=== PATIENT | female | born 1945 | race Caucasian/White ===

== ENCOUNTER 2017-03-20 19:37 | Inpatient (IN) | payer MEDICARE, BC ==
[~2017-03-20] VITALS: Ht 152.4 cm; Wt 77.1 kg
[~2017-03-20 19:37] MED LIST: ACETYL L-CARNITINE PO; ALEVE 220MG220 MG PO; ALLEGRA ALLERG180 MG PO; ASPIRIN E.C. 8181 MG PO; CALCIUM 500500 M1 PO; CALCIUM 600600 MG PO; CETIRIZINE; COZAAR; COZAAR 25MG25 MG/TAB PO; ESCITALOPRAM; ETODOLAC300 MG PO; FISH OIL500 MG PO; GLUCOSAMINE S1000 MG PO; HCTZ; INHALER; LEXAPRO 10MG10 MG PO; MAGNESIUM250 M1 PO; MSM1000 MG PO; NATURE'S BLE1000 MCG PO; NEXIUM 40MG40 MG PO; NEXIUM PO; NORVASC 5MG5 MG/TAB PO; OSTEO-BI-FLEX 21 TAB PO; PERCOCET 325 MG1 TA2 PO; PHENERGAN 25 TA25 MG PO; PRAVACHOL20 MG PO; PROAIR; SUPER B COMPLEX PO; UNICOMPLEX1 CAP PO; VICODIN 5/5001 UDTAB PO; VITAMIN B-1000 MCG/T; VITAMIN D 1001000 IU PO; [UNRECOGNIZED DRUG - OTHER]; [UNRECOGNIZED DRUG - REMARK] PO
[2017-03-20] MEDS ORDERED: COZAAR 25MG25 MG/TAB PO (20:41)
[2017-03-20 20:44] LABS: HEMATOCRIT 35.4 % (37.0-47.0); MEAN CELL VOLUME 94 fl (80.0-100.0); MEAN CORPUSCULAR HEMOGLOBIN 32 pg (27.0-31.0); MEAN CORPUSCULAR HGB CONC 34 g/dl (33.0-37.0); MEAN PLATELET VOLUME 9.9 fl (7.4-10.4); PLATELET COUNT 378 K/mm3 (130-400); RED BLOOD COUNT 3.78 M/mm3 (4.10-5.30); REDCELL DISTRIBUTION WIDTH-CV 13.9 % (11.5-14.5); WHITE BLOOD COUNT 15.3 K/mm3 (4.8-10.8)
[2017-03-20 20:46] LABS: PH 7 (5-8); SQUAMOUS EPITHELIAL 0-2 /hpf; URINE APPEARANCE Clear; URINE BACTERIA None Seen /hpf; URINE BILIRUBIN Negative (NEGATIVE); URINE BLOOD Negative (NEGATIVE); URINE COLOR Yellow; URINE GLUCOSE Negative (NEGATIVE); URINE KETONE Negative (NEGATIVE); URINE RBC 0-2 /hpf; URINE UROBILINOGEN Negative (NEGATIVE)
[2017-03-20 20:52] LABS: ADJUSTED CALCIUM 9.1 mg/dL (8.4-10.2); ALANINE AMINOTRANSFERASE 50 U/L (9-52); ALBUMIN 3.5 gm/dL (3.5-5.0); ALKALINE PHOSPHATASE 99 U/L (50-136); ANION GAP 11 mmol/L (7-16); BILIRUBIN,TOTAL 0.7 mg/dL (0.0-1.0); BLOOD UREA NITROGEN 9 mg/dL (7-17); CALCIUM 8.7 mg/dL (8.4-10.2); CARBON DIOXIDE 24 mmol/L (22-30); CHLORIDE 96 mmol/L (98-107); CREATINE KINASE 32 U/L (30-135); CREATININE, serum 0.57 mg/dL (0.52-1.25); GLUCOSE 137 mg/dL (74-106); POTASSIUM 4.4 mmol/L (3.4-5.0); SODIUM 131 mmol/L (137-145); TOTAL PROTEIN 6.9 gm/dL (6.4-8.2)
[2017-03-20 21:01] LABS: B-TYPE NATRIURETIC PEPTIDE 1290 pg/mL (0-125)
[2017-03-20 21:08] LABS: TROPONIN-I < 0.012 ng/mL (0.000-0.034)
[2017-03-20] MEDS ORDERED: BIOTIN10000 MC1 PO (21:09)
[2017-03-20 21:38] LABS: C-REACTIVE PROTEIN 35.6 mg/dL (0.0-0.9)
[2017-03-20 23:41] VITALS: BP 110/61; PULSE 86; TEMP 98.4
[2017-03-21 04:02] VITALS: BP 112/45; PULSE 94; TEMP 98.8
[2017-03-21 07:44] VITALS: BP 130/56; PULSE 103; TEMP 98.3
[2017-03-21 12:10] VITALS: BP 125/50; PULSE 96; TEMP 102.8
[2017-03-21 12:47] LABS: INFLUENZA B NEGATIVE
[2017-03-21 16:00] VITALS: BP 131/58; PULSE 100; TEMP 97.8
[2017-03-21 19:29] VITALS: BP 133/53; PULSE 92; TEMP 98.5
[2017-03-21 22:54] VITALS: BP 143/62; PULSE 82; TEMP 97.4
[2017-03-22 02:49] VITALS: BP 144/76; PULSE 70; TEMP 98.4
[2017-03-22 07:04] LABS: MEAN CELL VOLUME 94 fl (80.0-100.0); MEAN CORPUSCULAR HGB CONC 34 g/dl (33.0-37.0); MEAN PLATELET VOLUME 9.4 fl (7.4-10.4); PLATELET COUNT 433 K/mm3 (130-400); RED BLOOD COUNT 3.42 M/mm3 (4.10-5.30); REDCELL DISTRIBUTION WIDTH-CV 14.5 % (11.5-14.5)
[2017-03-22 07:07] LABS: HEMATOCRIT 32.2 % (37.0-47.0); HEMOGLOBIN 10.8 g/dl (12.5-16.0); MEAN CORPUSCULAR HEMOGLOBIN 32 pg (27.0-31.0)
[2017-03-22 07:08] LABS: ADD PATHOLOGY DIFF REVIEW NO
[2017-03-22 07:43] LABS: CALCIUM 8.8 mg/dL (8.4-10.2); CREATININE, serum 0.52 mg/dL (0.52-1.25); POTASSIUM 4.7 mmol/L (3.4-5.0)
[2017-03-22 08:30] VITALS: BP 135/52; PULSE 99; TEMP 97.1
[2017-03-22 08:47] LABS: BAND 30 % (0-10); MYELOCYTE 1 % (0-0); NEUTROPHILS 51 % (42.0-75.2); TOTAL CELLS COUNTED 100
[2017-03-22 08:48] LABS: PLATELET ESTIMATE INCREASED (NORMAL)
[2017-03-22 11:26] VITALS: BP 124/61; PULSE 79; TEMP 97.5
[2017-03-22 16:16] LABS: ARTERIAL BLD GAS O2 SATURATION 90.7 % (92-100); ARTERIAL BLD GAS TCO2 CT 25.9; ARTERIAL BLOOD GAS BASE EXCESS -0.1 (-2-2); ARTERIAL BLOOD GAS HCO3 24.6 meq/L (22-26); OXYHEMOGLOBIN 90.1 %
[2017-03-22 16:17] LABS: ATS? YES
[2017-03-22 16:27] VITALS: BP 140/55; PULSE 91; TEMP 97.9
[2017-03-22 20:49] VITALS: BP 128/52; PULSE 88; TEMP 98.6
[2017-03-22 23:34] VITALS: BP 143/67; PULSE 83; TEMP 98.1
[2017-03-23 03:09] VITALS: BP 137/68; PULSE 90; TEMP 98.4
[2017-03-23 07:09] LABS: MEAN CELL VOLUME 94 fl (80.0-100.0); MEAN CORPUSCULAR HGB CONC 33 g/dl (33.0-37.0); MEAN PLATELET VOLUME 9.4 fl (7.4-10.4); PLATELET COUNT 491 K/mm3 (130-400); RED BLOOD COUNT 3.43 M/mm3 (4.10-5.30); REDCELL DISTRIBUTION WIDTH-CV 14.5 % (11.5-14.5)
[2017-03-23 07:15] LABS: HEMATOCRIT 32.1 % (37.0-47.0); HEMOGLOBIN 10.7 g/dl (12.5-16.0); MEAN CORPUSCULAR HEMOGLOBIN 31 pg (27.0-31.0); WHITE BLOOD COUNT 24.5 K/mm3 (4.8-10.8)
[2017-03-23 08:06] VITALS: BP 138/61; PULSE 104; TEMP 98.1
[2017-03-23 08:41] LABS: CREATININE, serum 0.55 mg/dL (0.52-1.25); POTASSIUM 4.3 mmol/L (3.4-5.0)
[2017-03-23 08:50] LABS: BAND 43 % (0-10); METAMYELOCYTE 4 % (0-0); NEUTROPHILS 28 % (42.0-75.2); PLATELET ESTIMATE INCREASED (NORMAL); TOTAL CELLS COUNTED 100
[2017-03-23 08:51] LABS: ADD PATHOLOGY DIFF REVIEW YES
[2017-03-23 10:20] LABS: ERYTHROCYTE SEDIMENTATION RATE 87 mm/hr (0-30)
[2017-03-23 11:25] VITALS: BP 141/65; PULSE 88; TEMP 98.7
[2017-03-23 16:01] VITALS: BP 125/53; PULSE 94; TEMP 97.7
[2017-03-23 19:10] VITALS: BP 135/61; PULSE 104; TEMP 98.6
[2017-03-23 23:13] VITALS: BP 153/72; PULSE 98; TEMP 98.2
[2017-03-24] VITALS (7 sets, daily range): BP systolic 139–174; BP diastolic 63–79; PULSE 76–111; TEMP 97.3–98.3
[2017-03-24 07:05] LABS: MEAN CELL VOLUME 96 fl (80.0-100.0); MEAN CORPUSCULAR HGB CONC 33 g/dl (33.0-37.0); MEAN PLATELET VOLUME 9.4 fl (7.4-10.4); PLATELET COUNT 519 K/mm3 (130-400); RED BLOOD COUNT 3.37 M/mm3 (4.10-5.30); REDCELL DISTRIBUTION WIDTH-CV 14.6 % (11.5-14.5)
[2017-03-24 07:09] LABS: HEMATOCRIT 32.2 % (37.0-47.0); HEMOGLOBIN 10.7 g/dl (12.5-16.0); MEAN CORPUSCULAR HEMOGLOBIN 32 pg (27.0-31.0); WHITE BLOOD COUNT 22.7 K/mm3 (4.8-10.8)
[2017-03-24 07:10] LABS: ADD PATHOLOGY DIFF REVIEW NO
[2017-03-24 07:12] LABS: CALCIUM 8.8 mg/dL (8.4-10.2); CREATININE, serum 0.59 mg/dL (0.52-1.25); POTASSIUM 4.4 mmol/L (3.4-5.0)
[2017-03-24 07:55] LABS: BAND 24 % (0-10); BASOPHIL 1 % (0-2); METAMYELOCYTE 1 % (0-0); NEUTROPHILS 50 % (42.0-75.2); TOTAL CELLS COUNTED 100
[2017-03-24 07:56] LABS: PLATELET ESTIMATE INCREASED (NORMAL)
[2017-03-24 14:15] LABS: PATHOLOGY DIFF REVIEW OK +
[2017-03-25 03:19] VITALS: BP 167/68; PULSE 77; TEMP 98.5
[2017-03-25 06:35] LABS: MEAN CELL VOLUME 97 fl (80.0-100.0); MEAN CORPUSCULAR HGB CONC 32 g/dl (33.0-37.0); MEAN PLATELET VOLUME 9.1 fl (7.4-10.4); PLATELET COUNT 538 K/mm3 (130-400); RED BLOOD COUNT 3.53 M/mm3 (4.10-5.30); REDCELL DISTRIBUTION WIDTH-CV 14.7 % (11.5-14.5)
[2017-03-25 06:49] LABS: HEMATOCRIT 34.2 % (37.0-47.0); MEAN CORPUSCULAR HEMOGLOBIN 31 pg (27.0-31.0); WHITE BLOOD COUNT 22.3 K/mm3 (4.8-10.8)
[2017-03-25 06:50] LABS: ADD PATHOLOGY DIFF REVIEW NO
[2017-03-25 07:12] VITALS: BP 144/60; PULSE 89; TEMP 97.9
[2017-03-25 08:22] LABS: BAND 11 % (0-10); BASOPHIL 1 % (0-2); MYELOCYTE 3 % (0-0); NEUTROPHILS 62 % (42.0-75.2); TOTAL CELLS COUNTED 100
[2017-03-25 08:23] LABS: PLATELET ESTIMATE INCREASED (NORMAL)
[2017-03-25 10:18] LABS: ROCKY MOUNTAIN SPOT FEVER-ABS <1:16 (<1:16)
[2017-03-25 11:02] VITALS: BP 170/72; PULSE 96; TEMP 98
[2017-03-25 15:31] VITALS: BP 138/87; PULSE 98; TEMP 97.9
[2017-03-25 19:52] VITALS: BP 156/74; PULSE 97; TEMP 98.2
[2017-03-25 22:56] VITALS: BP 163/71; PULSE 95; TEMP 98.4
[2017-03-26] VITALS (7 sets, daily range): BP systolic 122–163; BP diastolic 59–82; PULSE 87–108; TEMP 97.5–98.4
[2017-03-26 07:19] LABS: BASO # 0.1 (0.0-0.2); BASO % 0.3 % (0.0-2.0); GRAN # 12.2 (1.4-6.5); GRAN % 58.5 % (42.2-75.2); LYMPH # 4.5 (1.2-3.4); LYMPH % 21.5 % (20.0-51.0); MEAN CELL VOLUME 96 fl (80.0-100.0); MEAN CORPUSCULAR HGB CONC 33 g/dl (33.0-37.0); MEAN PLATELET VOLUME 9.1 fl (7.4-10.4); MONO # 1.2 (0.1-0.6); MONO % 5.9 % (1.7-9.3); PLATELET COUNT 553 K/mm3 (130-400); RED BLOOD COUNT 3.45 M/mm3 (4.10-5.30); REDCELL DISTRIBUTION WIDTH-CV 14.6 % (11.5-14.5)
[2017-03-26 07:33] LABS: HEMATOCRIT 33.1 % (37.0-47.0); HEMOGLOBIN 10.8 g/dl (12.5-16.0); MEAN CORPUSCULAR HEMOGLOBIN 31 pg (27.0-31.0); WHITE BLOOD COUNT 20.8 K/mm3 (4.8-10.8)
[2017-03-26 14:03] LABS: LYME IgG WESTERN BLOT Negative (Negative)
[2017-03-27 03:11] VITALS: BP 124/66; BP 156/60; PULSE 83; PULSE 96; TEMP 98.7; TEMP 99
[2017-03-27 07:35] LABS: MEAN CELL VOLUME 96 fl (80.0-100.0); MEAN CORPUSCULAR HGB CONC 33 g/dl (33.0-37.0); MEAN PLATELET VOLUME 9.1 fl (7.4-10.4); PLATELET COUNT 517 K/mm3 (130-400); RED BLOOD COUNT 3.45 M/mm3 (4.10-5.30); REDCELL DISTRIBUTION WIDTH-CV 14.7 % (11.5-14.5); WHITE BLOOD COUNT 17.3 K/mm3 (4.8-10.8)
[2017-03-27 07:39] VITALS: BP 162/71; PULSE 81; TEMP 98.7
[2017-03-27 07:41] LABS: ADD PATHOLOGY DIFF REVIEW NO; HEMATOCRIT 33.1 % (37.0-47.0); HEMOGLOBIN 10.9 g/dl (12.5-16.0); MEAN CORPUSCULAR HEMOGLOBIN 32 pg (27.0-31.0)
[2017-03-27 09:07] LABS: BAND 4 % (0-10); EOSINOPHIL 3 % (0-4); METAMYELOCYTE 1 % (0-0); NEUTROPHILS 43 % (42.0-75.2); TOTAL CELLS COUNTED 100
[2017-03-27 09:08] LABS: ANISOCYTOSIS 1+; PLATELET ESTIMATE INCREASED (NORMAL)
[2017-03-27 11:31] VITALS: BP 135/64; PULSE 85; TEMP 98
[2017-03-27 15:48] VITALS: BP 143/70; PULSE 90; TEMP 98.2
[2017-03-27 20:14] VITALS: BP 149/76; PULSE 84; TEMP 98
[2017-03-28 00:07] VITALS: BP 146/71; PULSE 87; TEMP 98.1
[2017-03-28 04:05] VITALS: BP 137/64; PULSE 81; TEMP 97.7
[2017-03-28 07:38] VITALS: BP 141/62; PULSE 84; TEMP 98.3
[2017-03-28 08:10] LABS: MEAN CELL VOLUME 97 fl (80.0-100.0); MEAN CORPUSCULAR HGB CONC 32 g/dl (33.0-37.0); PLATELET COUNT 523 K/mm3 (130-400); RED BLOOD COUNT 3.53 M/mm3 (4.10-5.30); WHITE BLOOD COUNT 16.1 K/mm3 (4.8-10.8)
[2017-03-28 08:12] LABS: ADD PATHOLOGY DIFF REVIEW NO; HEMATOCRIT 34.3 % (37.0-47.0); HEMOGLOBIN 11.1 g/dl (12.5-16.0); MEAN CORPUSCULAR HEMOGLOBIN 31 pg (27.0-31.0)
[2017-03-28] MEDS ORDERED: ZYVOX 600MG600 MG PO (08:36)
[2017-03-28] MEDS ORDERED: LEVAQUIN 750MG750 M1 PO (08:37)
[2017-03-28] MEDS ORDERED: PREDNISONE10 MG PO (08:39)
[2017-03-28] MEDS ORDERED: ROBITUSSIN A-C S1 M1 PO (08:41)
[2017-03-28 09:01] LABS: BAND 8 % (0-10); EOSINOPHIL 4 % (0-4); NEUTROPHILS 57 % (42.0-75.2); TOTAL CELLS COUNTED 100
[2017-03-28 09:02] LABS: ANISOCYTOSIS 1+
[2017-03-28 09:03] LABS: PLATELET ESTIMATE INCREASED (NORMAL)
[2017-03-28] MEDS ORDERED: PROAIR HFA0.09 MG/AC IH (10:25)
[2017-03-28 11:20] VITALS: BP 112/66; PULSE 93; TEMP 98
== END 2017-03-28 15:02 | disposition home or self-care (01) | DRG 871 ==
LOC: COL.ER 19:37 → MEDICAL 21:59
PROVIDERS: Emergency Medicine; Internal Medicine; Internal Medicine Pulmonary Disease; Nurse Practitioner Family
PROC: 0B9B8ZX Drainage of Left Lower Lobe Bronchus, Via Natural or Artificial Opening Endoscopic, Diagnostic (ICD-10-PCS; 2017-03-26)
PROC: 0B958ZX Drainage of Right Middle Lobe Bronchus, Via Natural or Artificial Opening Endoscopic, Diagnostic (ICD-10-PCS; 2017-03-26)
PROC: 0B968ZX Drainage of Right Lower Lobe Bronchus, Via Natural or Artificial Opening Endoscopic, Diagnostic (ICD-10-PCS; principal; 2017-03-26 08:30)
DX: A41.9 Sepsis, unspecified organism (principal); J18.9 Pneumonia, unspecified organism; J96.01 Acute respiratory failure with hypoxia; I10 Essential (primary) hypertension; E78.5 Hyperlipidemia, unspecified; D64.9 Anemia, unspecified; F32.9 Major depressive disorder, single episode, unspecified; S30.860A Insect bite (nonvenomous) of lower back and pelvis, initial encounter; W57.XXXA Bitten or stung by nonvenomous insect and other nonvenomous arthropods, initial encounter; E87.70 Fluid overload, unspecified; I27.2 Other secondary pulmonary hypertension; K59.00 Constipation, unspecified
CPT/HCPCS: 99223-AI; 99231-AI; 99232-AI; 99233-AI; 99239; A9284; J0456; J0696; J1650; J1940; J1956; J2405; J2543; J2704; J2920; J2930; J7030; J7050; J7512; Q9967

== ENCOUNTER → 2017-04-02 | Outpatient (CLI) | payer MEDICARE, BC ==
[~2017-04-02] MED LIST changes: +BIOTIN10000 MC1 PO; +FLAGYL500 MG PO; +LEVAQUIN 750MG750 M1 PO; +PREDNISONE10 MG PO; +PRILOTC PO; +PROAIR HFA0.09 MG/AC IH; +ROBITUSSIN A-C S1 M1 PO; +ZYVOX 600MG600 MG PO
== END ==
LOC: COL.RAD 12:14
DX: M41.85 Other forms of scoliosis, thoracolumbar region (principal); M53.80 Other specified dorsopathies, site unspecified

== ENCOUNTER 2017-04-09 09:59 | Emergency (ER) | payer MEDICARE, BC ==
[~2017-04-09] VITALS: Ht 152.4 cm; Wt 77.3 kg
[~2017-04-09 09:59] MED LIST changes: -FLAGYL500 MG PO; -PRILOTC PO
[2017-04-09 10:01] VITALS: TEMP 98.7
[2017-04-09 10:41] LABS: BASO # 0.1 (0.0-0.2); EOS # 0.2 (0.0-0.7); EOS % 2.8 % (0-4.0); GRAN # 4.8 (1.4-6.5); GRAN % 55.7 % (42.2-75.2); HEMATOCRIT 36.3 % (37.0-47.0); HEMOGLOBIN 12.1 g/dl (12.5-16.0); LYMPH # 2.7 (1.2-3.4); MEAN CELL VOLUME 96 fl (80.0-100.0); MEAN CORPUSCULAR HEMOGLOBIN 32 pg (27.0-31.0); MEAN CORPUSCULAR HGB CONC 33 g/dl (33.0-37.0); MEAN PLATELET VOLUME 8.2 fl (7.4-10.4); MONO # 0.8 (0.1-0.6); MONO % 9.3 % (1.7-9.3); PLATELET COUNT 356 K/mm3 (130-400); RED BLOOD COUNT 3.77 M/mm3 (4.10-5.30); REDCELL DISTRIBUTION WIDTH-CV 14.8 % (11.5-14.5); WHITE BLOOD COUNT 8.7 K/mm3 (4.8-10.8)
[2017-04-09 10:52] LABS: ADJUSTED CALCIUM 9.5 mg/dL (8.4-10.2); ALANINE AMINOTRANSFERASE 43 U/L (9-52); ALBUMIN 3.8 gm/dL (3.5-5.0); ALKALINE PHOSPHATASE 66 U/L (50-136); ANION GAP 10 mmol/L (7-16); BILIRUBIN,TOTAL 0.9 mg/dL (0.0-1.0); BLOOD UREA NITROGEN 13 mg/dL (7-17); C-REACTIVE PROTEIN < 0.5 mg/dL (0.0-0.9); CALCIUM 9.3 mg/dL (8.4-10.2); CARBON DIOXIDE 25 mmol/L (22-30); CHLORIDE 103 mmol/L (98-107); CREATININE, serum 0.64 mg/dL (0.52-1.25); GLUCOSE 93 mg/dL (74-106); POTASSIUM 4.1 mmol/L (3.4-5.0); SODIUM 139 mmol/L (137-145); TOTAL PROTEIN 6.8 gm/dL (6.4-8.2)
[2017-04-09] MEDS ORDERED: PRILOTC PO (10:55)
[2017-04-09] MEDS ORDERED: OSTEO-BI-FLEX 21 TAB PO (10:57)
[2017-04-09] MEDS ORDERED: FLAGYL500 MG PO (12:36)
[2017-04-09 12:46] VITALS: BP 153/79; PULSE 76
== END 2017-04-09 12:47 | disposition home or self-care (01) ==
LOC: COL.ER 09:59
PROVIDERS: Emergency Medicine
DX: A04.7 Enterocolitis due to Clostridium difficile (principal); I10 Essential (primary) hypertension; K21.9 Gastro-esophageal reflux disease without esophagitis; M19.90 Unspecified osteoarthritis, unspecified site; F32.9 Major depressive disorder, single episode, unspecified; F41.9 Anxiety disorder, unspecified; Z96.642 Presence of left artificial hip joint; Z98.890 Other specified postprocedural states

== ENCOUNTER → 2017-10-20 | Outpatient (CLI) | payer MEDICARE, BC ==
[~2017-10-20] MED LIST changes: +FLAGYL500 MG PO; +PRILOTC PO
== END ==
LOC: MC.RAD 09:40
DX: Z12.31 Encounter for screening mammogram for malignant neoplasm of breast (principal)

== ENCOUNTER 2018-05-04 11:00 | Outpatient (RCR) | payer MEDICARE, BC | END 2018-05-27 | disposition home or self-care (01) | LOC: WSOT | DX: Z47.1 Aftercare following joint replacement surgery (principal); Z96.691 Finger-joint replacement of right hand | CPT/HCPCS: G8987-GO; G8988-GO ==

== ENCOUNTER → 2018-07-20 | Outpatient (CLI) | payer MEDICARE, BC | LOC: COL.PUL 13:00 | DX: I27.20 Pulmonary hypertension, unspecified (principal) | CPT/HCPCS: J7674 ==

== ENCOUNTER → 2019-07-21 | Outpatient (CLI) | payer MEDICARE, BC, OTHER | LOC: MHCPAIN 10:14 | DX: G89.29 Other chronic pain (principal); M47.817 Spondylosis without myelopathy or radiculopathy, lumbosacral region; M53.3 Sacrococcygeal disorders, not elsewhere classified | CPT/HCPCS: G0463 ==

== ENCOUNTER → 2019-07-26 | Outpatient (CLI) | payer MEDICARE, BC, OTHER | LOC: MHCPAIN 11:39 | DX: M47.817 Spondylosis without myelopathy or radiculopathy, lumbosacral region (principal); M54.16 Radiculopathy, lumbar region ==

== ENCOUNTER → 2019-08-04 | Outpatient (CLI) | payer MEDICARE, BC, OTHER | LOC: MHCPAIN 10:01 | DX: M47.817 Spondylosis without myelopathy or radiculopathy, lumbosacral region (principal); M54.16 Radiculopathy, lumbar region; M53.3 Sacrococcygeal disorders, not elsewhere classified; G89.29 Other chronic pain | CPT/HCPCS: G0463 ==

== ENCOUNTER → 2019-08-05 | Outpatient (CLI) | payer MEDICARE, BC, OTHER | LOC: MHCPAIN 10:08 | DX: M47.817 Spondylosis without myelopathy or radiculopathy, lumbosacral region (principal); M54.16 Radiculopathy, lumbar region ==

== ENCOUNTER → 2019-08-18 | Outpatient (CLI) | payer MEDICARE, BC, OTHER | LOC: MHCPAIN 10:05 | DX: G89.29 Other chronic pain (principal); M47.817 Spondylosis without myelopathy or radiculopathy, lumbosacral region; M53.3 Sacrococcygeal disorders, not elsewhere classified | CPT/HCPCS: G0463 ==

== ENCOUNTER 2023-10-30 14:03 | Outpatient (CLI) | payer MEDICARE, BC ==
[~2023-10-30] VITALS: Ht 152.4 cm; Wt 82.1 kg
[~2023-10-30 14:03] MED LIST changes: -FISH OIL500 MG PO; +OMEGA-3 1000 MG1 CAP; +PRAVACHOL10 MG PO; -PRAVACHOL20 MG PO; -VITAMIN D 1001000 IU PO; +VITAMIN D362.5 MC1; +ZOFRAN ODT4 MG PO
[2023-10-30 14:13] VITALS: BP 168/82; PULSE 79; TEMP 97.7
[2023-10-30] MEDS ORDERED: ULTRAM 50MG TAB50 MG (14:23)
== END 2023-10-30 14:32 | disposition home or self-care (01) ==
LOC: EUO 14:03
DX: M81.0 Age-related osteoporosis without current pathological fracture (principal)
CPT/HCPCS: J0897